=== PATIENT | male | born 1965 | race Caucasian/White ===

== ENCOUNTER 2017-09-11 10:43 | Day surgery (SDC) | payer BC, OTHER ==
[2017-09-07 15:15] VITALS: BMI 25.8
[~2017-09-11 10:43] MED LIST: LIDOCAINE 1% 20 ML VIAL (10MG/ML) FOR IV START INTRADERMA PRN
[2017-09-11] MEDS: LACTATED RINGERS 1,000 ML IV SCH ×2 (11:55→12:02)
[2017-09-11 12:06] VITALS: TEMP 98.7
[2017-09-11] MEDS ORDERED: PROPOFOL 10 MG/ML 20 ML VIAL IV ONE (12:23)
[2017-09-11 12:51] VITALS: RESP 18
--- NOTE | 2017-09-11 12:51 | P.PCN ---
Date of Procedure: 09/11/17 Procedure(s) Performed: Procedure: Total colonoscopy. Preoperative diagnosis: Screening for neoplasia, patient has history of colon polyps. Postoperative diagnosis: Exam within normal limits. Preparation: HalfLytely prep. Sedation: Was provided by anesthesia. Brief clinical history: The patient is a 52-year-old male who is scheduled for this evaluation for screening for neoplasia because of history of colon polyp. The patient had a colonoscopy in June 2014 that revealed and right colon polyp that was piecemeal and that showed fragments of adenoma. He has no abdominal complaints, bleeding or anemia. Procedure: With the patient on his left lateral decubitus position and after informed consent and adequate sedation, the perianal area was inspected and it did not show any fissures or fistulas. There were no masses felt on digital rectal examination. The Olympus CFQ 160L video colonoscope was then inserted in the rectum in the usual fashion and advanced to the cecum. The mucosa appeared healthy. No polyps or tumors were seen or any obvious diverticular disease or other pathology. I retroflexed the endoscope in the rectum before the endoscope was withdrawn. The patient tolerated the procedure well. Plan: The patient was reassured. He will follow up with you as planned and I recommended repeat exam in 5 years because of his history.
[2017-09-11 13:07] VITALS: BP 114/82; PULSE 99
== END 2017-09-11 13:30 | disposition home or self-care (01) ==
LOC: ORWHC2ENDO 10:43
DX: Z12.11 Encounter for screening for malignant neoplasm of colon (principal); Z86.010 Personal history of colon polyps; Z88.2 Allergy status to sulfonamides; Z79.899 Other long term (current) drug therapy
CPT/HCPCS: J2704; G0105

== ENCOUNTER 2022-10-19 08:27 | Day surgery (SDC) | payer BC ==
[2022-10-18 08:48] VITALS: BMI 22.9
[2022-10-19] MEDS ORDERED: LACTATED RINGERS 1,000 ML IV SCH (08:51)
[2022-10-19 08:57] VITALS: TEMP 96.9
[2022-10-19] MEDS ORDERED: PROPOFOL 10 MG/ML 20 ML VIAL IV ONE (09:17)
--- NOTE | 2022-10-19 09:18 | P.GSHP ---
History of Present Illness H&P Date: 10/19/22 Chief Complaint: History of colon polyps This a 57-year-old male presents today for colonoscopy. Patient appears history of colon polyps. Past Medical History Past Medical History: No Reported History Additional Past Medical History / Comment(s): Testicle Pain History of Any Multi-Drug Resistant Organisms: None Reported Past Surgical History: Appendectomy, Orthopedic Surgery, Tonsillectomy Additional Past Surgical History / Comment(s): LT KNEE ARTHROSCOPY. COLONOSCOPY Past Anesthesia/Blood Transfusion Reactions: No Reported Reaction Smoking Status: Former smoker - Past Family History Mother Family Medical History: Cancer Medications and Allergies Home Medications Medication Instructions Recorded Confirmed Type No Known Home Medications 10/18/22 10/19/22 History Allergies Allergy/AdvReac Type Severity Reaction Status Date / Time Sulfa (Sulfonamide Allergy Unknown Unknown Verified 10/19/22 08:52 Antibiotics) Childhood Surgical - Exam Vital Signs Temp Pulse Resp BP Pulse Ox 96.9 F L 89 18 103/68 100 10/19/22 08:50 10/19/22 08:50 10/19/22 08:50 10/19/22 08:50 10/19/22 08:50 - General well developed, well nourished, no distress - Eyes PERRL - ENT normal pinna - Neck no masses - Respiratory normal expansion - Cardiovascular Rhythm: regular - Abdomen Abdomen: soft, non tender Assessment and Plan Assessment: History of colon polyps. We'll perform colonoscopy.
--- NOTE | 2022-10-19 09:30 | P.OP ---
Date of Procedure: 10/19/22 Preoperative Diagnosis: History of colon polyps Postoperative Diagnosis: Diverticulosis Procedure(s) Performed: Colonoscopy Anesthesia: MAC Surgeon: Randolph Da Silva Pathology: none sent Condition: stable Disposition: PACU Description of Procedure: The patient's placed on the endoscopy table in the lateral position. He received IV sedation. Digital rectal exam performed. This revealed no abnormalities. The flexible colonoscope was then placed patient anus passed throughout the entire colon. The ileocecal valve was visualized. The cecum, ascending and transverse colon appeared normal. In the descending and; there is moderate diverticular changes. Scope was then brought back the rectum and this appeared normal. Scope withdrawn for patient. There is no evidence of any polyps.
[2022-10-19 09:42] VITALS: RESP 16
[2022-10-19 09:46] VITALS: BP 112/67; PULSE 88
== END 2022-10-19 10:06 | disposition home or self-care (01) ==
LOC: ORWHC2ENDO 08:27
PROVIDERS: ATTEND Surgery
DX: Z12.11 Encounter for screening for malignant neoplasm of colon (principal); K57.30 Diverticulosis of large intestine without perforation or abscess without bleeding; Z86.010 Personal history of colon polyps; Z90.49 Acquired absence of other specified parts of digestive tract; Z90.89 Acquired absence of other organs; Z98.890 Other specified postprocedural states; Z87.891 Personal history of nicotine dependence; Z80.8 Family history of malignant neoplasm of other organs or systems; Z88.2 Allergy status to sulfonamides; Z88.1 Allergy status to other antibiotic agents
CPT/HCPCS: 45378; J2704

== ENCOUNTER 2023-09-07 08:32 | Day surgery (SDC) | payer BC ==
[2023-09-07] MEDS: LACTATED RINGERS 1,000 ML IV SCH (08:58)
[2023-09-07 09:11] VITALS: TEMP 97
[2023-09-07] MEDS ORDERED: LIDOCAINE 1% INJ 10MG/ML (20 ML MDV) ONE (09:25)
[2023-09-07] MEDS ORDERED: PROPOFOL 10 MG/ML 20 ML VIAL IV ONE (09:25)
--- NOTE | 2023-09-07 09:35 | P.PCN ---
Date of Procedure: 09/07/23 Procedure(s) Performed: BRIEF HISTORY: Patient is a 58-year-old, pleasant, white male scheduled for an upper endoscopy as a part of evaluation of throat irritation and throat congestion for the last 6 months duration.. PROCEDURE PERFORMED: Esophagogastroduodenoscopy with biopsy . PREOPERATIVE DIAGNOSIS: Chronic throat irritation and throat congestion of 6 months duration IV sedation per anesthesia. PROCEDURE: After informed consent was obtained, the patient was brought into the endoscopy unit. IV sedation was administered by Anesthesia under continuous monitoring. Initially the Olympus GIF-140 video endoscope was inserted into the mouth. Esophagus intubated without any difficulty. It was gradually advanced into the stomach and duodenum and carefully examined. The bulb and the second part of the duodenum appeared normal. The scope at this time was withdrawn to the stomach, adequately insufflated with air, and upon careful examination, mucosa of the antrumantrum mild gastritis and a 5 mm antral ulcer that was biopsied. Mucosa of the , body, cardia and the fundus appeared normal. The s cope was then withdrawn into the esophagus. all hiatal hernia noted. The GE junction was located at 42 cm from the incisors. The esophagus appeared normal. There were no erosions or ulcerations seen, biopsies were done from the distal esophagus and the patient tolerated the procedure well. IMPRESSION: 1. Mild antral gastritis and 5 mm antral ulcers status post biopsy. 2. Small hiatal hernia but no evidence of esophagitis. RECOMMENDATIONS: The findings of this examination were discussed with the patient . as well as his family. He was advised to follow with the biopsy results. Recommended omeprazole 20 mg daily for 3 months. Avoid NSAIDs.
[2023-09-07 10:30] VITALS: BP 115/80; PULSE 63; RESP 16
== END 2023-09-07 10:20 | disposition home or self-care (01) ==
LOC: ORWHC2ENDO 08:32
PROVIDERS: ATTEND Internal Medicine Gastroenterology
DX: K29.50 Unspecified chronic gastritis without bleeding (principal); K44.9 Diaphragmatic hernia without obstruction or gangrene; K25.9 Gastric ulcer, unspecified as acute or chronic, without hemorrhage or perforation; K21.9 Gastro-esophageal reflux disease without esophagitis; Z90.49 Acquired absence of other specified parts of digestive tract; Z79.899 Other long term (current) drug therapy; Z98.890 Other specified postprocedural states
CPT/HCPCS: 88305; 43239; J2001; J2704

== ENCOUNTER → 2023-11-08 | Outpatient (CLI) | payer BC ==
--- NOTE | 2023-11-08 17:36 | US ---
EXAMINATION TYPE: US abdomen complete DATE OF EXAM: 11/08/2023 COMPARISON: NONE CLINICAL INDICATION: Male, 58 years old with history of R10.13 EPIGASTRIC PAIN; Pain TECHNIQUE: Multiple sonographic images of the abdomen are obtained. FINDINGS: EXAM MEASUREMENTS: Liver Length: 13.7 cm Gallbladder Wall: .3 cm CBD: .4 cm Spleen: 10.8 cm Right Kidney: 10 x 4.4 x 5.0 cm Left Kidney: 9.9 x 5.6 x 4.3 cm Pancreas: Obscured by bowel gas Liver: wnl Gallbladder: No stones seen Evidence for sonographic Jiang's sign: No CBD: limited due to bowel gas Spleen: wnl Right Kidney: Anechoic area upper pole 2.0 x 1.4 x 1.2 cm Left Kidney: wnl Upper IVC: wnl Abd Aorta: wnl The liver is homogenous. The intrahepatic portion of the IVC and proximal abdominal aorta are within normal limits. There is no evidence of cholelithiasis. Common bile duct is unremarkable. The spl een is unremarkable. Kidneys are symmetric and free of hydronephrosis. No renal lesions are seen. IMPRESSION: 1. Pancreas not evaluated due to bowel gas. 2. No other significant abnormality seen. Liver, gallbladder, biliary tree unremarkable.
== END | disposition home or self-care (01) ==
LOC: RADUSWWP 06:39
PROVIDERS: ATTEND Family Medicine
DX: R10.13 Epigastric pain (principal)
CPT/HCPCS: 76700

== ENCOUNTER → 2023-12-26 | Outpatient (CLI) | payer BC ==
--- NOTE | 2023-12-26 12:04 | FL ---
EXAMINATION TYPE: FL barium swallow DATE OF EXAM: 12/26/2023 CLINICAL INDICATION: 58-year-old male R13.10, unspecified dysphasia, reflux, scoped 2 months ago COMPARISON: None Total Fluoroscopy Time: 1 minute 52 seconds 376.41 mGycm2 DAP 46 images obtained. FINDINGS: The swallowing mechanism is normal. There is mild hypertrophy of the cricopharyngeus muscle noted on the prone drinking images. No obstruction. Otherwise, the hypopharyngeal anatomy is preserved. The thoracic portion has a normal course and caliber and normal motility. The mucosa is normal and no persistent filling defect is encountered. No stricture. There is a tiny sliding hiatal hernia demonstrated with mild gastroesophageal reflux visualized on th is exam. IMPRESSION: 1. Very mild CP muscle hypertrophy without obstruction. 2. Tiny sliding hiatal hernia. Mild gastroesophageal reflux is visualized during the course of the ex am.
== END | disposition home or self-care (01) ==
LOC: RADUSWWP 07:50
PROVIDERS: ATTEND Otolaryngology
DX: K21.9 Gastro-esophageal reflux disease without esophagitis (principal); K44.9 Diaphragmatic hernia without obstruction or gangrene; M62.89 Other specified disorders of muscle; R13.10 Dysphagia, unspecified; R07.9 Chest pain, unspecified
CPT/HCPCS: 74220

== ENCOUNTER → 2024-03-20 | Outpatient (CLI) | payer BC ==
--- NOTE | 2024-03-24 07:07 | XR ---
EXAMINATION TYPE: XR chest 2V DATE OF EXAM: 03/20/2024 COMPARISON: None INDICATION: Chronic cough TECHNIQUE: Frontal and lateral views of the chest are obtained. FINDINGS: The heart size is normal. The pulmonary vasculature is normal. The lungs are clear. Old right posterior lateral rib fractures are present IMPRESSION: 1. No acute pulmonary process. [facility], Workstation: [facility], 03/24/2024 7:05 AM
== END | disposition home or self-care (01) ==
LOC: RADXRYALE 15:39
PROVIDERS: ATTEND Internal Medicine Gastroenterology
DX: R13.14 Dysphagia, pharyngoesophageal phase (principal); R05.3 Chronic cough
CPT/HCPCS: 71046

== ENCOUNTER → 2024-05-12 | Outpatient (CLI) | payer BC ==
--- NOTE | 2024-05-12 17:33 | CT ---
EXAMINATION TYPE: CT chest w con DATE OF EXAM: 05/12/2024 5:29 PM COMPARISON: None. CLINICAL INDICATION: Male, 59 years old with history of R91.1 SOLITARY PULMONARY NODULE, f/u pulmonar y nodule and hiatial hernia, TECHNIQUE: CT scan of the chest is performed with IV Contrast, patient injected with 100 mL of Isovue 370. CT DLP: 329.2 mGycm, Automated exposure control for dose reduction was used. FINDINGS: LUNGS: Noted are 3 mm pulmonary nodules left lung left lower lobe on image 37 of 76. No additional no dules are present. Parenchymal scarring left medial lung base and right lower lobe anteriorly. No add itional nodules are seen. No infiltrate or volume loss. MEDIASTINUM: There are no greater than 1 cm hilar or mediastinal lymph nodes. No pericardial effusi on is seen. Thoracic aorta is of normal caliber. The heart is not enlarged. UPPER ABDOMEN: No significant abnormality appreciated. OTHER: No additional significant abnormality is seen. IMPRESSION: Noted are 3 mm pulmonary nodules left lung left lower lobe on image 37 of 76. No additional nodules a re present. [facility], , 05/12/2024 5:31 PM
== END | disposition home or self-care (01) ==
LOC: RADCTMAIN 17:02
PROVIDERS: ATTEND Internal Medicine Critical Care Medicine
DX: R91.8 Other nonspecific abnormal finding of lung field (principal)
CPT/HCPCS: 71260; Q9967

== ENCOUNTER 2024-09-17 08:18 | Day surgery (SDC) | payer BC ==
[2024-09-17] MEDS ORDERED: LIDOCAINE 1% (10MG/ML) FOR IV START INTRADERMA PRN (08:27)
[2024-09-17 08:44] VITALS: RESP 16; TEMP 96.6
[2024-09-17] MEDS: IV FLUID CONTINUATION 1,000 ML IV ONE (08:48)
[2024-09-17] MEDS: LACTATED RINGERS 1,000 ML IV SCH (08:48)
[2024-09-17] MEDS ORDERED: LIDOCAINE 1% INJ 10MG/ML (20 ML MDV) ONE (09:40)
[2024-09-17] MEDS ORDERED: PROPOFOL 10 MG/ML 20 ML VIAL IV ONE (09:40)
--- NOTE | 2024-09-17 09:45 | P.GSHP ---
History of Present Illness H&P Date: 09/17/24 CHIEF COMPLAINT: GERD and dysphagia HISTORY OF PRESENT ILLNESS: The patient is a 59-year-old male who presents reports gastroesophageal reflux disease and dysphagia. Upper endoscopy was offered for further evaluation and management. PAST MEDICAL HISTORY: Please see list. PAST SURGICAL HISTORY: Please see list. MEDICATIONS: Please see list. ALLERGIES: Please see list. SOCIAL HISTORY: No illicit drug use FAMILY HISTORY: No reports of Crohn disease or ulcerative colitis. REVIEW OF ORGAN SYSTEMS: CONSTITUTIONAL: No reports of fevers or chills. GI: Denies any blood in stools or constipation. PHYSICAL EXAM: VITAL SIGNS: Stable GENERAL: Well-developed and pleasant in no acute distress. HEENT: No scleral icterus. Extraocular movements grossly intact. Moist buccal mucosa. NECK: Supple without lymphadenopathy. CHEST: Unlabored respirations. Equal bilateral excursions. CARDIOVASCULAR: Regular rate and rhythm. Distal 2+ pulses. ABDOMEN: Soft, nondistended. MUSCULOSKELETAL: No clubbing, cyanosis, or edema. ASSESSMENT: 1. Gastroesophageal reflux disease and dysphagia PLAN: 1. Recommend proceeding with an upper endoscopy Past Medical History Past Medical History: GERD/Reflux Additional Past Medical History / Comment(s): Testicle Pain for 35 yrs. long standing congestion and cough as well as stomach upset History of Any Multi-Drug Resistant Organisms: None Reported Past Surgical History: Appendectomy, Hernia Repair, Orthopedic Surgery, Tonsillectomy Additional Past Surgical History / Comment(s): Lt. inguinal hernia repair, LT KNEE ARTHROSCOPY, COLONOSCOPY Past Anesthesia/Blood Transfusion Reactions: Postoperative Nausea & Vomiting (PONV) Additional Past Anesthesia/Blood Transfusion Reaction / Comment(s): PONV w/ knee scope Smoking Status: Former smoker - Past Family History Mother Family Medical History: Cancer Additional Family Medical History / Comment(s): lung cancer Medications and Allergies Home Medications Medication Instructions Recorded Confirmed Type diphenhydrAMINE HCL [Benadryl] 12.5 mg PO HS 09/15/24 09/17/24 History Allergies Allergy/AdvReac Type Severity Reaction Status Date / Time Sulfa (Sulfonamide Allergy Unknown Unknown Verified 09/17/24 08:35 Antibiotics) Childhood Surgical - Exam Vital Signs Temp Pulse Resp BP Pulse Ox 96.6 F L 69 16 131/72 94 L 09/17/24 08:37 09/17/24 08:37 09/17/24 08:37 09/17/24 08:37 09/17/24 08:37
--- NOTE | 2024-09-17 10:10 | P.PCN ---
Date of Procedure: 09/17/24 Description of Procedure: PREOPERATIVE DIAGNOSIS: Dysphagia POSTOPERATIVE DIAGNOSIS: Upper esophageal stenosis Chronic gastric ulcer OPERATION: Esophagogastroduodenoscopy with rigid dilator over the guidewire 57 Fr with dilation Esophagogastroduodenoscopy with cold forceps biopsies stomach/antrum, e sophagus, duodenum SURGEON: Cassandra Lin MD ANESTHESIA: MAC. INDICATIONS: The patient is a 59-year-old male who presents with dysphagia. Benefits and risks of the procedure were described. Informed consent was obtained. DESCRIPTION: The patient was brought into the endoscopy suite and laid in the left lateral decubitus position. After a timeout was confirmed, the procedure was initiated. An Olympus gastroscope was passed into the posterior oropharynx where an upper esophageal stenosis was identified. The scope was passed down to the distal esophagus. To address the upper esophageal stenosis, rigid dilator over guidewire was selected. Next using an Moroccan rigid dilator, a guidewire was placed through the gastroscope. Next the scope was withdrawn. A 57-Greenlandic rigid Moroccan dilator was passed carefully along the posterior oropharynx to 45 cm and left in place for 2-3 minutes stretch. The dilator was withdrawn including the guidewire. The scope was reentered along the posterior oropharynx with no findings of full- thickness tear of the upper esophageal sphincter. Additional findings below. Within the stomach, severe acute gastritis with gastric ulcerations were suzy ntified along the body of the stomach with cold forceps biopsies obtained. The lower esophageal valve was evaluated with Hill grade 2 lower esophageal valve. LA grade A erosive esophagitis was identified. No full-thickness injury was encountered. The GI tract was desufflated. The patient tolerated the procedure well. FINDINGS: Upper esophageal stenosis dilated 57-Greenlandic rigid dilator Diaphragmatic hiatus at 42 cm from the incisors Squamocolumnar junction 42 cm from the incisors. Chronic gastric ulcer along the antrum with biopsies obtained Duodenum with with biopsies obtained LA grade A erosive esophagitis, biopsies obtained Hill grade 2 lower esophageal valve. RECOMMENDATIONS: Omeprazole 40 mg daily x 2 weeks Repeat upper endoscopy as needed Plan - Discharge Summary Discharge Rx Participant: No New Discharge Prescriptions: Continue diphenhydrAMINE HCL [Benadryl] 12.5 mg PO HS Discharge Medication List diphenhydrAMINE HCL [Benadryl] 12.5 mg PO HS 09/15/24 [History] Follow up Appointment(s)/Referral(s): Cassandra Lin MD [STAFF PHYSICIAN] - 09/30/24 9:45 am Patient Instructions/Handouts: Esophageal Dilation (GEN) Activity/Diet/Wound Care/Special Instructions: Warm salt water gargle twice a day for 3 days Discharge Disposition: HOME SELF-CARE
[2024-09-17 10:28] VITALS: BP 135/78; PULSE 75
== END 2024-09-17 11:07 | disposition home or self-care (01) ==
LOC: ORWHC2ENDO 08:18
PROVIDERS: ATTEND Surgery Plastic and Reconstructive Surgery
DX: K22.2 Esophageal obstruction (principal); K25.7 Chronic gastric ulcer without hemorrhage or perforation; K21.00 Gastro-esophageal reflux disease with esophagitis, without bleeding; K22.89 Other specified disease of esophagus; K44.9 Diaphragmatic hernia without obstruction or gangrene; K22.10 Ulcer of esophagus without bleeding; Z87.891 Personal history of nicotine dependence; Z90.49 Acquired absence of other specified parts of digestive tract; Z98.890 Other specified postprocedural states; Z88.2 Allergy status to sulfonamides
CPT/HCPCS: 88305; 43239; 43248; J2003; J2704